=== PATIENT | male | born 1975 | race Caucasian/White ===

== ENCOUNTER → 2019-07-21 | Outpatient (CLI) | payer OTHER ==
--- NOTE | 2019-07-21 07:20 | REP ---
Clinical: Elevated liver function tests. Technique: Real time leary scale ultrasound examination using curved array transducer. Findings: Liver is hyperechoic with poor through transmission suggesting fatty infiltration and/or cellular disease. A subcentimeter anechoic area in the right lobe approaching the dome may represent small cyst. The pancreas is incompletely evaluated due to interposed bowel gas. Gallbladder is normal and without gallstones, wall thickening, or pericholecystic fluid. No biliary ductal dilatation is appreciated and the common bile duct measures 5.1 mm diameter. The right kidney is normal in reniform shape without hydronephrosis and measures 11.9 x 6.2 x 5.3 cm. No ascites in the visualized right upper quadrant. Visualized abdominal aorta appears normal. Impression: 1. Hepatic steatosis. 6 mm hepatic cyst. Electronically Signed by Eron Carmen MD 07/21/2019 07:11 A
== END ==
LOC: M RAD 06:21
PROVIDERS: ATTEND Internal Medicine
DX: E78.2 Mixed hyperlipidemia (principal); R74.8 Abnormal levels of other serum enzymes; K76.89 Other specified diseases of liver; K76.0 Fatty (change of) liver, not elsewhere classified